=== PATIENT | male | born 2005 | race Two or more races ===

== ENCOUNTER 2023-08-02 11:37 | Emergency (ER) | payer OTHER, SELFPAY ==
--- NOTE | ~2023-08-02 | US_ITS ---
EXAMINATION: US ABDOMEN LIMITED CLINICAL INFORMATION: Right upper quadrant pain. COMPARISON: None available. TECHNIQUE: Real-time imaging of the right upper quadrant abdominal viscera. FINDINGS: PANCREAS: Visualized pancreatic head and body are normal in appearance. LIVER: The liver is partially visualized and demonstrates no abnormalities. No intrahepatic biliary duct dilatation noted. GALLBLADDER: A single 3 mm diameter mural based focus without posterior acoustic shadowing is noted and is suspicious for a gallbladder wall polyp. No cholelithiasis identified. No gallbladder wall thickening elsewhere. No pericholecystic fluid collections. COMMON BILE DUCT: Normal in caliber measuring 0.2 cm in diameter. No free intraperitoneal fluid is noted within the incidentally visualized portions of the right upper abdominal quadrant. US/US abdomen limited IMPRESSION: *No cholelithiasis. *Single 3 mm gallbladder wall polyp. This finding is of uncertain clinical significance. The radiology literature is ambiguous with regards to appropriate imaging follow-up for subcentimeter gallbladder wall polyps. A conservative imaging follow-up management would be 6-12 month follow-up sonography to demonstrate stability.
--- NOTE | ~2023-08-02 | XR_ITS ---
EXAMINATION: XR CHEST CLINICAL INFORMATION: SOB. COMPARISON: None available. TECHNIQUE: 2 views of the chest were obtained. FINDINGS: No significant abnormality is noted involving the heart, lungs, mediastinum, bony thorax or soft tissues. XR/XR chest 2V IMPRESSION: Unremarkable chest examination.
[2023-08-02 11:43] VITALS: BP 107/64; PULSE 78; RESP 18; TEMP 36.7; O2SAT 98; BMI 18.6
--- NOTE | 2023-08-02 11:58 | ED_ITS ---
HPI - Nausea/Vomiting/Diarrhea General Chief complaint: Nausea/Vomiting/Diarrhea Stated complaint: diarrhea fever vomiting Time Seen by Provider: 08/02/23 11:57 Source: patient and RN notes reviewed Mode of arrival: ambulatory Limitations: no limitations History of Present Illness HPI Narrative: this is a 18-year-old male, with no known medical problems, presenting to the emergency department with complaints of epigastric pain, nausea, vomiting, and diarrhea since 3:00 a.m. this morning. Patient states that he went to a [employer] party last night for he had home cooked food as well as several cups of hard alcohol. He states that he woke up suddenly at 3:00 a.m. this morning and has had nausea, vomiting, diarrhea and mid epigastric burning. Patient endorsing chills, no fevers. He also reports some shortness of breath, no fevers, chest pain, palpitations, urinary symptoms. He does smoke marijuana, He last smoked yesterday. Denies any sick contacts with similar symptoms. Denies any bloody or black stool. Denies hematemesis. No other complaints or concerns at this time. MD elicited complaint: nausea, vomiting, diarrhea and abdominal pain Onset (ago): hour(s) Description of vomiting: food contents and watery Associated nausea: Yes Associated abdominal pain: Yes Location of pain: epigastric Radiation: epigastric Pain consistency: constant Severity: moderate Quality: aching Exacerbating factors: none Relieving factors: none Associated symptoms: nausea/vomiting Related Data Previous Rx's Medication Instructions Recorded ondansetron 4 mg disintegrating 4 mg PO Q6H PRN nausea and 08/02/23 tablet vomiting #10 tabs Allergies Allergy/AdvReac Type Severity Reaction Status Date / Time No Known Allergies Allergy Verified 08/02/23 11:43 Review of Systems 2 Review of Systems: Yes all other systems are reviewed and are negative Constitutional: Constitutional: Reports as per HPI Gastrointestinal: Gastrointestinal: Reports nausea PMFSH Social History Social History Advance Directives: No Physical Exam 2 Vital Signs: Vital Signs: Last Vital Signs Temp 98.0 F 08/02/23 11:43 Pulse 83 08/02/23 16:11 Resp 16 08/02/23 16:11 BP 117/63 08/02/23 16:11 Pulse Ox 100 08/02/23 16:11 O2 Del Method Room Air 08/02/23 16:11 BMI result Body Mass Index 18.6 Const: General: cooperative, comfortable and no acute distress O rientation/consciousness: patient oriented x3 Limitations: no limitations HEENT: Head: Yes normal to inspection, Yes normocephalic and Yes atraumatic Ears: hearing grossly normal bilaterally General nose exam: Normal external nose present Face and sinus: Yes normal facial exam Mouth: Normal oral and palatal mucosa present, oropharynx normal and moist mucous membranes Throat: Yes posterior oropharynx normal Eyes: General: appearance normal, both eyes and all related structures E yelids: Yes eyelids normal Conjunctivae: conjunctivae normal Sclerae: s clerae normal Pupils: Equal, round and reactive pupils present EOM: EOMs intact bilaterally Neck: Neck: Yes normal visual inspection, Yes full ROM and Yes no lymphadenopathy Lymphatic: no lymphadenopathy noted Chest: Chest palpation & inspection: normal inspection of the chest Resp: Effort & Inspection: normal respiratory effort and able to speak in complete sentences Auscultation: clear to auscultation bilaterally, no crackles, no rales, no rhonchi and no wheezes Cardio: Rate: regular rate Rhythm: regular rhythm Heart sounds: S1 normal heart sound present and S2 normal heart sound present GI: Other: abdomen is soft, with mild tenderness to palpation in the epigastrium, no right upper quadrant tenderness. Normoactive bowel sounds present in all 4 quadrants. Inspection: Yes normal to inspection Skin: General skin exam: no rashes or lesions noted Trauma: no lacerations or abrasions Wounds: no wounds Neuro: General: patient oriented x3 and moves all extremities Cranial nerves: Yes Equal, round and reactive pupils present Extrem: General: Yes normal to inspection Right upper extremity: normal to inspection Left upper extremity: normal to inspection Right lower extremity: normal to inspection Left lower extremity: normal to inspection Course Reevaluation(s) Reevaluation #1: patient's symptoms improved after receiving IV Zofran and IV fluids. Total bili slightly elevated at 1.3, there is no previous on exam. Patient has mild epigastric pain and right upper quadrant pain. Will order abdominal ultrasound to rule out any gallbladder etiology. Time: 13:10 Reevaluation #2: patient vomiting again after p.o. trial, Phenergan 12.5mg IV ordered Time: 13:38 Reevaluation #3: patient has not received Phenergan, no longer vomiting, patient medicated with Phenergan, will p.o. trial. Time: 15:56 Additional Reevaluation(s): Patient has not vomited, p.o. trial tolerated. Patient will be discharged on Zofran, with return precautions. Patient understands and agrees with plan. Patient stable for discharge. Medications Administered Discontinued Medications Generic Name Dose Route Start Last Admin Trade Name Freq PRN Reason Stop Dose Admin Sodium Chloride 1,000 mls @ 999 mls/hr 08/02/23 12:16 08/02/23 12:27 Ns IV 08/02/23 13:16 999 mls/hr .Q1H1M ONE Administration Promethazine HCl 12.5 mg/ 50.5 mls @ 202 mls/hr 08/02/23 13:35 08/02/23 14:44 Sodium Chloride IV 08/02/23 13:36 Not Given ONCE ONE Promethazine HCl 12.5 mg/ 50.5 mls @ 202 mls/hr 08/02/23 15:52 08/02/23 15:59 Sodium Chloride IV 08/02/23 15:53 202 mls/hr ONCE ONE Administration Ondansetron HCl 4 mg 08/02/23 12:16 08/02/23 12:30 Ondansetron Hcl 4 Mg/2 Ml Vial IVPUSH 08/02/23 12:17 4 mg ONCE ONE Administration Medical Decision Making Medical Decision Making [facility] Narrative: This is a 18-year-old male presenting to the emergency department for evaluation of nausea, vomiting, diarrhea and epigastric burning since 3:00 a.m. this morning. On arrival, patient is nontoxic appearing, vital signs within normal limits. Patient's abdomen is soft, with mild tenderness palpation in the epigastrium. No right upper quadrant pain. Differential diagnoses include gastroenteritis, gastritis, Dehydration, electrolyte abnormality. Less likely cholecystitis, cholangitis given no right upper quadrant pain. Plan: labs, viral swabs. IV fluids, and IV Zofran. Chest x-ray was ordered given patient reporting some shortness of breath into evaluate for aspiration pneumonia, pneumothorax Differential Diagnosis Differential Diagnoses: The differential diagnosis associated with the presentation includes See above Lab Data [facility] Lab Attestation statement: I reviewed the patient's lab results. 08/02/23 11:57 08/02/23 11:57 Labs: Lab Results 08/02/23 08/02/23 Range/Units 11:57 12:22 WBC 8.5 (4.8-10.8) X10*3/uL RBC 5.15 (4.60-5.80) X10*6/uL Hgb 14.9 (14.0-18.0) g/dl Hct 43.7 (42.0-52.0) % MCV 84.9 (80.0-98.0) fL MCH 28.9 (27.0-33.0) pg MCHC 34.1 (31.0-36.0) g/dl RDW 13.2 (11.0-16.0) % Plt Count 226 (160-400) X10*3/uL MPV 10.9 (9.4-12.4) fL Immature Gran % (Auto) 0.2 (0.0-0.4) % Neut % (Auto) 87.4 H (45-73) % Lymph % (Auto) 6.0 L (20-40) % [place] % (Auto) 5.6 (2-11) % Eos % (Auto) 0.4 (0-4) % Baso % (Auto) 0.4 (0-2) % Lymph # (Auto) 0.5 L (1.2-4.9) X10*3/uL [place] # (Auto) 0.5 (0.1-1.2) X10*3/uL Eos # (Auto) 0.0 (0.0-0.4) X10*3/uL Baso # (Auto) 0.0 (0.0-0.2) X10*3/uL Abs Immat Gran (auto) 0.02 (0.00-0.03) X10*3/uL Absolute Neuts (auto) 7.4 (2.0-8.3) x10*3/uL Absolute Nucleated RBC 0.000 (0.0-0.012) X10*3/uL Nucleated RBC % (auto) 0.0 (0.0-0.2) /100WBC Sodium 141 (135-145) mmol/L Potassium 4.2 (3.3-5.1) mmol/L Chloride 105 (96-108) mmol/L Carbon Dioxide 26 (22-29) mmol/L Anion Gap 14 (12-20) BUN 17 H (9-16) mg/dL Creatinine 0.85 (0.5-1.4) mg/dL Estim Creat Clear Calc 102.9 Estimated GFR > 60 Random Glucose 102 (60-115) mg/dL Calcium 9.5 (8.4-10.2) mg/dL Total Bilirubin 1.3 H (0.0-1.0) mg/dL AST 16 (5-37) U/L ALT 10 (0-40) U/L Alkaline Phosphatase 79 (39-117) U/L Total Protein 7.3 (6.5-8.0) g/dL Albumin 4.7 (3.5-5.0) g/dL Lipase 13 (8-78) U/L Urine Color Yellow Urine Appearance Clear Urine pH 7.5 (5.0-9.0) Ur Specific [place] 1.025 (1.005-1.025) Urine Protein Negative (Neg-Trace) mg/dL Urine Glucose (UA) Negative (Negative) mg/dL Urine Ketones Trace (Negative) mg/dL Urine Blood Negative (Negative) Urine Nitrite Negative (Negative) Ur Leukocyte Esterase Trace H (Negative) Urine RBC 0-2 (0-2) /HPF Urine WBC 0-5 (0-5) /HPF Ur Squamous Epith Cells 0-2 (0-2) /HPF Urine Bacteria None Seen (None Seen) Hyaline Casts 0-2 (0-2) /LPF Ethyl Alcohol < 10 mg/dL COVID-19 ([facility]) Negative (Negative) COVID-19 Clin Com See Note Influenza Type A ([facility]) Negative (Negative) Influenza Type B ([facility]) Negative (Negative) Influenza A & B Note See Note Radiology Impression Discussion of test interpretation with radiology: I have reviewed the radiologist's reading. External Record Review External record reviewed: Inpatient record, Office record, Outpatient record, Prior outpatient labs, Prior outpatient radiology, Primary care record and Outside ED record Discharge Plan Discharge Clinical Impression: Nausea & vomiting Patient Disposition: Home, Self-Care Instructions: Acute Nausea and Vomiting (ED) Additional Instructions: you were seen in the emergency department due to nausea and vomiting. Your lab workup today was reassuring. Your medicated with IV fluids and medication to treat nausea. Your ultrasound was reassuring. There is a call bladder wall polyp, I recommend following up with your primary care physician in 6-12 months for further evaluation Eat a bland diet, drink plenty of fluids get plenty of rest. Take prescribed nausea medication as needed. If any new or worsening symptoms occur including but not limited to abdominal pain, worsening nausea and vomiting, please return for re-evaluation. Prescriptions: New ondansetron 4 mg tablet,disintegrating 4 mg PO Q6H PRN (Reason: nausea and vomiting) Qty: 10 0RF
[2023-08-02 12:01] LABS: MANUAL DIFF FLAG NO
[2023-08-02 12:04] LABS: Basophils Percent Auto 0.4 % (0-2); Eosinophils Percent Auto 0.4 % (0-4); Hematocrit 43.7 % (42.0-52.0); Hemoglobin 14.9 g/dl (14.0-18.0); Imm Gran Abs Auto 0.02 X10*3/uL (0.00-0.03); Imm Gran Pct Auto 0.2 % (0.0-0.4); Lymphocytes Absolute Auto 0.5 X10*3/uL (1.2-4.9); Mean Corpuscular HGB Conc 34.1 g/dl (31.0-36.0); Mean Corpuscular Hemoglobin 28.9 pg (27.0-33.0); Mean Corpuscular Volume 84.9 fL (80.0-98.0); Mean Platelet Volume 10.9 fL (9.4-12.4); Monocytes Absolute Auto 0.5 X10*3/uL (0.1-1.2); Monocytes Percent Auto 5.6 % (2-11); Neutrophils Absolute Auto 7.4 x10*3/uL (2.0-8.3); Neutrophils Percent Auto 87.4 % (45-73); Platelet Count 226 X10*3/uL (160-400); Red Blood Count 5.15 X10*6/uL (4.60-5.80); Red Cell Distribution Width 13.2 % (11.0-16.0); White Blood Count 8.5 X10*3/uL (4.8-10.8)
[2023-08-02 12:20] LABS: Alanine Aminotransferase 10 U/L (0-40); Albumin Level 4.7 g/dL (3.5-5.0); Alkaline Phosphatase 79 U/L (39-117); Anion Gap 14 (12-20); Aspartate Amino Transferase 16 U/L (5-37); Bilirubin Total 1.3 mg/dL (0.0-1.0); Blood Urea Nitrogen 17 mg/dL (9-16); Calcium 9.5 mg/dL (8.4-10.2); Carbon Dioxide 26 mmol/L (22-29); Chloride 105 mmol/L (96-108); Creatinine Clr Calc Pharmacy 102.9; Estimated Glomerular Filt Rate > 60; Glucose Random 102 mg/dL (60-115); Lipase 13 U/L (8-78); Potassium 4.2 mmol/L (3.3-5.1); Sodium 141 mmol/L (135-145); Total Protein 7.3 g/dL (6.5-8.0)
[2023-08-02 12:25] LABS: COVID-19 Test Negative (Negative); IDNOW Serial# BCCEAD1C
[2023-08-02] MEDS: 0.9 % Sodium Chloride 1,000 ML 999 ML IV (12:27)
[2023-08-02] MEDS: ondansetron HCL 4 MG/2 ML VIAL IVPUSH (12:30)
[2023-08-02 12:44] LABS: Appearance Urine Clear; Color Urine Yellow; Glucose Urine UA Negative (Negative); Leukocyte Esterase Urine Trace (Negative); Nitrite Urine Negative (Negative); PH 7.5 (5.0-9.0); Specific Gravity - Urine 1.025 (1.005-1.025); UMIC TRIGGER UACC YES; Urine Blood Negative (Negative); Urine Ketones Trace mg/dL (Negative); Urine Protein Negative (Neg-Trace)
[2023-08-02 12:49] LABS: Bacteria Urine None Seen (None Seen); Hyaline Casts Urine 0-2 /LPF (0-2); RBC Urine 0-2 /HPF (0-2); Squamous Epithelial Cell Urine 0-2 /HPF (0-2); WBC Urine 0-5 /HPF (0-5)
[2023-08-02 13:00] LABS: IDNOW Serial# 08D9AD1C; Influenza A Negative (Negative); Influenza B2 Negative (Negative)
[2023-08-02 13:21] LABS: Ethanol < 10 mg/dL
[2023-08-02 16:11] VITALS: BP 117/63; PULSE 83; RESP 16; O2SAT 100
== END 2023-08-02 17:44 | disposition home or self-care (01) ==
PROVIDERS: Physician Assistant Medical; Emergency Provider Student in an Organized Health Care Education/Training Program
DX: R11.2 Nausea with vomiting, unspecified (principal); Z11.52 Encounter for screening for COVID-19
CPT/HCPCS: 36415; 71046; 76705; 80053; 80307; 81001; 83690; 85025; 87502; 87635; 96374; 96375; 99284; J2405; J2550